=== PATIENT | female | born 1945 | race Caucasian/White ===

== ENCOUNTER → 2019-10-02 11:33 | Outpatient (BNVA) | payer MEDICARE, OTHER, SELFPAY | PROVIDERS: Family Provider Family Medicine; PCP Family Medicine; Visit Provider Urology | DX: Z87.440 Personal history of urinary (tract) infections (principal) | CPT/HCPCS: 81003 ==

== ENCOUNTER 2020-04-02 14:57 | Outpatient (CLI) | payer MEDICARE, OTHER, SELFPAY ==
--- NOTE | 2020-04-02 15:03 | MR_ITS ---
WS: [id number] MRI RIGHT HIP NONCONTRAST TECHNIQUE: Axial T1, axial T2 fat sat, coronal T1, coronal STIR, sagittal T2 fat sat, sagittal T1, an d sagittal T2 fat sat, of both hips. CLINICAL INFORMATION: RIGHT HIP JOINT PAIN COMPARISON: None. FINDINGS: Advanced degenerative arthritis both hips with joint space narrowing. Hypertrophic changes about the right femoral head and neck. Small right joint effusion. No significant edema in the right femoral he ad or acetabulum. Right proximal femoral shaft is normal. Subchondral cystic change involving the rig ht femoral head. No evidence of avascular necrosis. Similar-appearing but less severe degenerative na rrowing left hip. Normal bone marrow signal in the sacrum and visualized bony structures. Normal pubic rami. Normal vis ualized pelvic soft tissues. No inguinal lymphadenopathy. MR/MR hip RT wo con* [id number] IMPRESSION: 1. Advanced osteoarthritis right hip with joint space narrowing and subchondra l cystic change. 2. No significant edema in the right femoral head or acetabulum. Small right j oint effusion. 3. Similar-appearing but less severe degenerative changes left hip. 4. No other significant findings.
== END 2020-04-02 14:58 | disposition home or self-care (01) ==
LOC: RADSHAW 15:02
PROVIDERS: PCP Family Medicine; Visit Provider Family Medicine
DX: M25.551 Pain in right hip (principal); M16.11 Unilateral primary osteoarthritis, right hip
CPT/HCPCS: 73721

== ENCOUNTER → 2020-05-02 09:30 | Outpatient (BNVA) | payer MEDICARE, OTHER, SELFPAY | PROVIDERS: PCP Family Medicine; Visit Provider Internal Medicine | DX: Z01.812 Encounter for preprocedural laboratory examination (principal) | CPT/HCPCS: 87635 ==

== ENCOUNTER 2020-05-05 07:38 | Day surgery (SDC) | payer MEDICARE, OTHER, SELFPAY ==
--- NOTE | 2020-04-30 10:56 | ANES.PREANE2 ---
Pre-Anesthetic Assessment Pre-Anesthetic Assessment: Height/Weight: Height 1.7 m Weight 90.718 kg Preop Diagnosis: Osteoarthritis right hip Proposed Procedure: Operation Date: 05/05/20 09:10 Proposed Procedures p Total Hip Arthroplasty 43784 M16.11(Right) - Jorge Alberto Lazcano MD Familial anesthetic complications: None Social: Social History: No alcohol and No tobacco Exam: Pre-Anes Outpt Exam: alert, oriented x 3, clear to auscultation bilaterally and regular rate & rhythm Airway: Cervical ROM: WNL MP: 3 Dentition: Other (missing) CV/HEM: CV/HEM: Afib (stopping warfarin 04/30) and HTN Comments: Echo 2018 - EF 65%, mild MVR EKG unchanged from april 2019 METS - goes up and down stairs in her house up to a dozen times a day (two flights of 8 steps) Mild SOB on extertion with easy recovery : : None reported Hepatic: Hepatic: None reported GI: GI: GERD Metabolic: Metabolic: Thyroid Anesthetic Plan: ASA status: 2 Anesthesia: General Risk of > 500 ml blood loss (7ml/kg in children): Yes, adequate IV access and fluids planned PFSH Anesthesia PFSH: Medical History Afib History of recurrent UTI (urinary tract infection) HTN (hypertension) Mitral valve regurgitation Surgical History H/O section H/O total knee replacement H/O: hysterectomy Family History Mother , 82 CAD (coronary artery disease) Father , 77 CAD (coronary artery disease) Social History Smoking and tobacco status: never smoked Alcohol intake: never Marital status: Current occupational status: retired Data Anesthesia Cardiac Studies: No Data to Display
[2020-04-30 11:45] LABS: Add Urine Microscopic? NO
[2020-04-30 12:18] LABS: Bilirubin Urine Neg (NEGATIVE); Blood Urine Neg (Negative); Glucose Urine UA Norm (Normal); Ketones Urine Negative (Negative); Leukocyte Esterase Urine Negative (Negative); Nitrate Urine Negative (Negative); Protein Urine Neg (Negative); Specific Gravity, Urine 1.005 (1.005-1.030); Urine Appearance Clear (CLEAR); Urine Color Yellow (Yellow); Urobilinogen Urine Norm (Negative); pH Urine 7 (5-7)
[2020-05-05] VITALS (25 sets, daily range): BP systolic 95–144; BP diastolic 44–75; PULSE 56–73; RESP 14–22; TEMP 36.1–37.1; O2SAT 93–100
[2020-05-05] MEDS: sodium chloride 0.9% 1,000 ML 30 ML IV (08:02)
--- NOTE | 2020-05-05 08:23 | P.ANESUD_ITS ---
Pre-Anesthetic Update Pre-Anesthetic Assessment: Date of Surgery/Procedure: 05/05/20 Preop Christie gnosis: Osteoarthritis right hip Proposed Procedure: Operation Date: 05/05/20 09:10 Proposed Procedures p Total Hip Arthroplasty 81594 M16.11(Right) - Jorge Alberto Lazcano MD Any changes to Pre-Anesthetic Assessment?: No Last Intake: Intake Last Liquid Date 05/04/20 Last Liquid Time 22:00 Last Solid Date 05/04/20 Last Solid Time 20:00 Vitals: Temperature 97.7 F 05/05/20 07:52 Temperature Source Temporal Artery S can 05/05/20 07:52 Pulse Rate 73 05/05/20 07:52 Pulse Rhythm 05/05/20 07:53 Pulse Strength 3+ Normal 05/05/20 07:53 Respiratory Rate 18 05/05/20 07:52 Blood Pressure 144/71 05/05/20 07:52 Blood Pressure Danielle n 95 05/05/20 07:52 Pulse Oximetry 96 05/05/20 07:52 Oxygen Delivery Me thod 05/05/20 07:53 Other Pertinent Information: Other Pertinent Information: Plan for SAB with sedation. Cardiac Studies: No Data to Display
--- NOTE | 2020-05-05 09:24 | W.PM.OPSUD ---
Surgery/Procedure H&P Update DATE OF PROCEDURE: May 05, 2020 DATE H&P PERFORMED: 04/08/20 PREOP DIAGNOSIS: Osteoarthritis right hip PLANNED PROCEDURE: Operation Date: 05/05/20 09:10 Proposed Procedures p Total Hip Arthroplasty 95517 M16.11(Right) - Jorge Alberto Lazcano MD
[2020-05-05] MEDS: tranexamic acid 1,000 mg/10mL SDV 1000 MG IRRIGATION (10:25)
--- NOTE | 2020-05-05 10:35 | SUR.OPER ---
Family Notified Of Patient's Status Via Phone.
--- NOTE | 2020-05-05 11:50 | PM.OP ---
Operative Report Date of procedure: May 05, 2020 Pre-op Diagnosis: Osteoarthritis right hip Post-op diagnosis: same Post-op Findings: Same Procedure Done: Left total hip arthroplasty Implants: 1) Michael 46 mm ADM acetabular shell 2) Size7 Michael 132 degree neck angle SecureFit Max stem 3} 28mm standard femoral head 4} Restorationa ADM X3 insert Pathology: none sent Surgeon: Jorge Alberto Lazcano Anesthesia: Nerve Block (Spinal) Estimated blood loss (mL): 350 Complications: None Findings: Patient had degenerative changes with narrowing of the femoral head and acetabular cartilage and osteophytes about the femoral head Condition: stable Disposition: PACU Procedure: The patient was taken to the operating room and anesthesia provided by the anesthesia service. The patient was placed in the lateral position on a beanbag. A timeout was performed. The patient was draped in the usual fashion. A 15 cm long incision was made beginning just proximal to the greater trochanter and extending posteriorly to a point just distal to the trochanter on the posterior border of the trochanter. Dissection was carried down with electrocautery through the subcutaneous fat to the fascia dylan which was divided proximally and distally with curved scissors. The anterior two thirds of the gluteus medius and minimus were elevated off the hip with electrocautery. The capsule was divided in a H-like fashion. The hip was dislocated and a neck cut made just above the level of the lesser trochanter. Exposure of the acetabulum was facilitated with the acetabular retractors. Remnants of labrum and peripheral osteophytes were removed with electrocautery and a rongeur. A reamer 2 mm under the size the femoral head was utilized to ream medially to the base of the palm and are. Reaming was then increased in 1 mm intervals until a healthy rim a trabecular bone was encountered. A trial ADM cup was placed and its position marked with electrocautery In the acetabulum. A final was press-fit into place. Attention was then focused on the femur. Sequential reaming was done under power until cortical chatter was encountered. Broaching was then accomplished until a stable broach size was obtained. A trial reduction with the head and neck provided excellent stability. The wound was irrigated with saline and antibiotic solution. The final [place] SecureFit Max stem was press-fit into place. The femoral head was placed and the hip was reduced. The hip was brought through range of motion and found to be free of impingement and stable. The anterior capsule was reapproximated with 1 Ethibond. The gluteus medius and minimus were repaired through bone with 5 Ethibond and reinforced with 1 Ethibond. The fascial dylan was closed with 1 Ethibond. The subcutaneous tissue closed with 2-0 Vicryl. The skin was closed with skin hugh. A sterile dressing was applied. The patient was taken to the recovery room in an abduction pillow in stable condition.
--- NOTE | 2020-05-05 11:56 | PM.PACU ---
PACU note PACU note: VSS, no pain--spinal partially worn off. Post-Anesthesia Exam: somnolent, arousable Disposition: admitted
--- NOTE | 2020-05-05 12:03 | XR_ITS ---
WS: [id number] EXAM: RIGHT HIP: AP VIEW DATE OF EXAMINATION: 05/05/2020, 1216 hours COMPARISON: Right hip films from 03/24/2020 HISTORY: Patient is 74 years old with right hip replacement. FINDINGS: Since the earlier examination there has been interval placement of a noncemented right hip hemiarthro plasty. No hardware complication or bony malalignment is seen. Air in the soft tissues correlates wit h an open procedure. Slight arthritis in the right AC joint. XR/XR hip RT 1V wo/w pel [id number] IMPRESSION: New right hip hemiarthroplasty. No hardware complication or acute bony abnormal ity.
--- NOTE | 2020-05-05 12:10 | SUR.PHASEI ---
1210 PT HAS SENSATION/MOVEMENT TO R. FOOT, PEDAL PULSE PALPATED, CAP REFILL <3 SEC
[2020-05-05] MEDS: aspirin 81 mg EC Tablet PO (13:21)
[2020-05-05] MEDS: CELEcoxib 200 mg Capsule PO (13:21)
[2020-05-05] MEDS: sodium chloride 0.9% 1,000 ML 100 ML IV (13:21)
[2020-05-05] MEDS: oxyCODONE 5 mg IR Tab/Cap PO (13:21)
[2020-05-05] MEDS: pantoprazole DR 40 mg Tablet PO (13:21)
[2020-05-05] MEDS: chlorhexidine gluconate 0.12% Btl 473 mL 30 ML MUCOUS MEM ×3 (13:22→21:09)
--- NOTE | 2020-05-05 14:02 | PC.NURSE ---
Called Dr Lazcano to see if he wants patient to start Coumadin today. Waiting telecommunications specialist back.
[2020-05-05] MEDS: morphine 4 mg/mL SDV 1 mL 2 MG IVP ×2 (14:16→16:43)
--- NOTE | 2020-05-05 14:52 | PC.NURSE ---
Rcvd call from Dr Lazcano stating to start home dose of Coumadin today
[2020-05-05] MEDS: mupirocin oint 22 gm 1 APPLIC NASAL (16:44)
[2020-05-05] MEDS: sennosides-docusate Tablet 2 TAB PO (16:45)
--- NOTE | 2020-05-05 18:17 | PC.NURSE ---
notified Dr Lazcano that patient's pain medications are not controlling pain. Per Dr Lazcano, he will change patient's pain medications.
[2020-05-05] MEDS: oxyCODONE 5 mg IR Tab/Cap 10 MG PO (21:11)
[2020-05-06] VITALS (9 sets, daily range): BP systolic 107–130; BP diastolic 70–78; PULSE 77–101; RESP 16–20; TEMP 36.6–37.1; O2SAT 91–94
[2020-05-06] MEDS: morphine 4 mg/mL SDV 1 mL 2 MG IVP ×3 (00:25→05:11)
[2020-05-06] MEDS: oxyCODONE 5 mg IR Tab/Cap 10 MG PO ×3 (00:25→08:49)
[2020-05-06] MEDS: sodium chloride 0.9% 1,000 ML 100 ML IV ×3 (00:26→22:55)
[2020-05-06 04:30] LABS: Hemoglobin 12.2 g/dL (11.5-15.3)
[2020-05-06 04:51] LABS: INR 0.97 (0.8-1.2)
[2020-05-06] MEDS: CELEcoxib 200 mg Capsule PO ×2 (05:13→16:57)
[2020-05-06] MEDS: dilTIAZem ER (24HR) 300 mg Capsule PO (05:16)
--- NOTE | 2020-05-06 07:19 | PC.NURSE ---
Patient resting in bed, awake alert and oriented, new ice pack placed to right hip, plan of care discussed with patient verbalized understanding, patient reported goal of sitting in chair and being more mobile today , reports heart burn this morning. Call light in reach side rails up X2.
[2020-05-06] MEDS: calcium carbonate 500 mg Chew Tablet 1000 MG PO ×2 (08:08→12:36)
[2020-05-06] MEDS: ondansetron 2 mg/ML SDV 2 mL 4 MG IVP (08:19)
[2020-05-06] MEDS: HYDROcodone-acetaminophen 10-325 mg Tablet 1 TAB PO ×2 (08:53→15:09)
--- NOTE | 2020-05-06 09:39 | PC.NURSE ---
Physical therapy in room with patient completing PT, no distress noted.
[2020-05-06] MEDS: aspirin 81 mg EC Tablet PO (10:04)
[2020-05-06] MEDS: atorvastatin 40 mg Tablet 20 MG PO (10:05)
[2020-05-06] MEDS: magnesium oxide 400 mg tablet PO (10:05)
[2020-05-06] MEDS: levothyroxine 50 mcg Tablet PO (10:06)
[2020-05-06] MEDS: mupirocin oint 22 gm 1 APPLIC NASAL ×2 (10:06→16:56)
[2020-05-06] MEDS: sennosides-docusate Tablet 2 TAB PO ×2 (10:06→16:57)
[2020-05-06] MEDS: chlorhexidine gluconate 0.12% Btl 473 mL 30 ML MUCOUS MEM ×4 (10:07→20:27)
--- NOTE | 2020-05-06 10:53 | PC.NURSE ---
jasmine catheter removed prior to shift change, patient has urinated in BSC during this shift.
--- NOTE | 2020-05-06 10:54 | PC.NURSE ---
patient voided 150mL of clear urine with no fowl odor after ambulating to bedside commode from chair and back to bed when finished. patient required extensive assist of 2
--- NOTE | 2020-05-06 11:05 | PC.CHAP ---
Pastoral Care Encounter/Spiritual Assessment Type of Contact [] Declined stamp pad maker visit [] Patient/Family/Request visit [] Outpatient visit [] Follow-up visit [] Physician referral [] Code/Alert [x] Routine visit [] Staff referral [] Actively dying [] Patient sleeping [] Family support [] [] Out of room [] Palliative care [] [x] Receiving care in room [] Pre-surgical visit [] Trauma [] Long length of stay [] ICU visit [] Other: Relational/Emotional Strength [x] Patient feels connected with others/family/visitors/staff [] Distress [] Loneliness/isolation [] Abandonment Spirituality of Patient [x] Person of [place] [] Attends Orthodox of their [place] [x] Believes in Prayer [] Reads Bible or Bahai materials [] There are Spiritual issues to be addressed Mathematics Instructor Interventions [x] Prayer [x] Active listening [x] Non-anxious presence [x] Spiritual/emotional support [] Crisis/trauma care [x] Spiritual counseling [] Bereavement support [] Provided bereavement packet [] Provided Bible/devotional materials [] Provided toy/stuffed animal, coloring book to patient or family member [] Provided Communion [] Anointing/[place] [] Salvation [x] Completed spiritual assessment [] Other: Impact on Illness or Injury [] Angry [] Fearful [] Anxious [] Often cries [] Exhaustion [] Unable to work [] Unable to attend congregational [] Unable to walk/stand [] Unable to read [] Unable to drive [] Unable to eat/drink [] Unable to sleep [] Unable to be with family [] Patient intubated [] Other: Summary Had sugery on hip, feels good has a good attitude, ther will be some recovery time will go home, Time spent with patient 10 mins
--- NOTE | 2020-05-06 12:55 | ANE.PACU2 ---
Inpatient post-anesthesia follow up: Airway intact: Yes Vital signs: Temperature 98.7 F Pulse Rate 100 Respiratory Rate 16 Blood Pressure 128/78 Pulse Oximetry 94 Oxygen Delivery Me thod Room Air Oxygen Flow Rate 8 Fraction of Inspir ed Oxygen Hydration adequate: Yes Nausea and vomiting: No Pain level: 4 Mental status: Baseline
--- NOTE | 2020-05-06 13:15 | PM.PN ---
Subjective Subjective: Interval history: Pain better controlled with hydrocodone. Required IV morphine this morning but better now Vitals/I&O/Wt Last Vital Signs Temp 98.7 F 05/06/20 07:27 Pulse 100 05/06/20 07:27 Resp 16 05/06/20 07:27 BP 128/78 05/06/20 07:27 Pulse Ox 94 05/06/20 07:27 05/05/20 05/06/20 05/06/20 22:59 06:59 14:59 Intake Total 530 / 690 1050 / 1740 1120 / 1120 Output Total 200 / 650 325 / 975 450 / 450 Balance 330 / 40 725 / 765 670 / 670 Physical Exam Narrative: EXAM NARRATIVE: Right hip dressing clean and dry. Minimal swelling right thigh Urinary Catheter Management^: F: Cath Placed During This Visit: yes Urinary Catheter Date of Insertion: 05/05/20 Urinary Catheter Time of Insertion: 09:45 Data : 05/06/20 04:10 A&P Assessment and plan (1) Osteoarthritis of right hip: Status: Acute (2) Status post right hip replacement: We will continue p.o. [place] for pain control. Continue to mobilize. Anticipate discharge tomorrow Status: Acute Attestations Medical Necessity Statement*: Patient required IV pain medications this morning. Anticipate discharge tomorrow. Coding Level of Care Code Acute Marble Polisher Hand for Estevan Orellana Diagnoses Osteoarthritis of right hip M16.11 Status post right hip replacement Z96.641
[2020-05-06] MEDS: metoprolol succinate ER (24 HR) 100 mg Tablet PO (15:09)
[2020-05-06] MEDS: warfarin 5 mg Tablet PO (15:09)
--- NOTE | 2020-05-06 15:12 | PC.NURSE ---
Patient resting in bed, reports a pain level of 4/10 to right hip, NORCO given per doctors orders, see MAR for further details, ABD pillow in place, SCD's in place, call light in reach.
[2020-05-07] VITALS: BP 99/64; PULSE 66; RESP 18; TEMP 36.5; O2SAT 93
[2020-05-07 04:00] VITALS: BP 109/65; PULSE 67; RESP 17; TEMP 36.4; O2SAT 94
[2020-05-07 04:54] LABS: INR 1.11 (0.8-1.2)
[2020-05-07] MEDS: CELEcoxib 200 mg Capsule PO (05:00)
[2020-05-07] MEDS: dilTIAZem ER (24HR) 300 mg Capsule PO (05:01)
[2020-05-07 07:25] VITALS: BP 110/56; PULSE 97; RESP 18; TEMP 36.4; O2SAT 93
--- NOTE | 2020-05-07 08:11 | P.DS_ITS ---
Discharge Providers Date of Discharge: May 07, 2020 Attending Provider at Discharge: Jorge Alberto Lazcano MD Primary Care Provider: Escobar Wynn MD Diagnoses at Discharge Discharge Diagnosis (1) Osteoarthritis of right hip: Status: Resolved (2) Status post right hip replacement: Status: Acute Reason for Visit Reason for Visit: Primary osteoarthritis of rip hip Hospital Course Hospital Course: The patient was admitted after elective right total hip arthroplasty. She had initial problems with pain control requiring IV pain medications the first postoperative day. Her medications were changed from oxycodone to hydrocodone and she did much better. She was on warfarin previously and she was placed back on her home dose in addition to aspirin for DVT prophylaxis. She had sequential compression dressings placed during her hospitalization. She made good progress with therapy and by the second pos toperative day was thought stable for discharge Physical Exam Narrative: EXAM NARRATIVE: On the second postoperative day her resting was clean. She had minimal swelling in her thigh. She had no distal neurovascular deficits she was thought stable for discharge Urinary Catheter Management^: F: Cath Placed During This Visit: yes Urinary Catheter Date of Insertion: 05/05/20 Urinary Catheter Time of Insertion: 09:45 Discharge Data Data Completed and Pending: Completed Studies During Hospitalization Category Date Time Status XR hip RT 1V wo/w pel [id number] Routine Exams 05/05/20 12:03 Completed Pending at discharge Category Date Time Status Prothrombin Time INR AM LABS Lab 05/08/20 04:00 Ordered Labs from last 24 hours 05/07/20 04:00 PT 14.70 INR 1.11 Vitals: Last Vital Signs Temp 97.6 F 05/07/20 07:25 Pulse 97 05/07/20 07:25 Resp 18 05/07/20 07:25 BP 110/56 05/07/20 07:25 Pulse Ox 93 05/07/20 07:25 Discharge Plan Discharge Patient Disposition: Home Condition: Stable Prescriptions: [place] 7.5-325 mg tablet 1 tab PO Q4H Qty: 30 RF: 0 celecoxib 200 mg Capsule 200 mg PO Q12H Qty: 30 RF: 0 Continued atorvastatin 20 mg tablet 20 mg PO DAILY RF: 0 diltiazem HCl [Cartia XT] 240 mg capsule,extended release 24hr 300 mg PO QAM RF: 0 warfarin 5 mg tablet 5 mg PO DIRECTED RF: 0 levothyroxine 50 mcg capsule 50 mcg PO DAILY RF: 0 metoprolol succinate 100 mg capsule,sprinkle,ER 24hr 100 mg PO Q24H RF: 0 methenamine hippurate 1 gram tablet 1 gm PO DAILY RF: 0 magnesium 200 mg tablet 400 mg PO DAILY RF: 0 aspirin 81 mg tablet,delayed release (DR/EC) 81 mg PO ONCE RF: 0 omeprazole 20 mg tablet,delayed release (DR/EC) 20 mg PO .QOD RF: 0 ascorbic acid (vitamin C) [Vitamin C] 1,000 mg Tablet 1,000 mg PO DAILY RF: 0 warfarin 2.5 mg Tablet 2.5 mg PO DIRECTED RF: 0 Discharge Orders: Discharge Order (Routine); Ordered 05/07/20 Ordered By: Jorge Alberto Lazcano Other Ambulatory Orders: DME: Viral (Order) Location: None Selected Ordered By: Jorge Alberto Lazcano Referrals: [facility] [place] Care ([facility]) [Outside] Jorge Alberto Lazcano MD [Physician] - 05/20/20 2:45 pm Escobar Wynn MD [Primary Care Provider] - Discharge Diet: Advance as tolerated Discharge Activity: Limit activity as instructed Activity Restrictions/Additional Instructions: May shower once incisions completely free of drainage. Discontinue right hip dressing in 24-48 hours. Replaced dressings as needed. Take Celebrex twice a day for the next 15 days for pain , discontinue other anti-inflammatories take hydrocodone for breakthrough pain. Exercises per physical therapy. May discontinue abduction pillow Discharge Attestations Time Spent in Discharge Care*: other Quality Metrics Clinical Quality Measures During this hospital stay, did patient experience: None Coding Level of Care Code Acute [employer] Glazier for [facility] Fwd Diagnoses Osteoarthritis of right hip M16.11 Status post right hip replacement Z96.641
[2020-05-07] MEDS: levothyroxine 50 mcg Tablet PO (08:26)
[2020-05-07] MEDS: HYDROcodone-acetaminophen 10-325 mg Tablet 1 TAB PO (08:26)
[2020-05-07] MEDS: magnesium oxide 400 mg tablet PO (08:26)
[2020-05-07] MEDS: aspirin 81 mg EC Tablet PO (08:26)
[2020-05-07] MEDS: pantoprazole DR 40 mg Tablet PO (08:26)
[2020-05-07] MEDS: sennosides-docusate Tablet 2 TAB PO (08:26)
[2020-05-07] MEDS: atorvastatin 40 mg Tablet 20 MG PO (08:26)
[2020-05-07] MEDS: chlorhexidine gluconate 0.12% Btl 473 mL 30 ML MUCOUS MEM (08:28)
--- NOTE | 2020-05-07 09:14 | PC.NURSE ---
TICK PATIENT HAD A TICK ON THE BACK OF HER RIGHT LEG. REMOVED WITH EASE.
[2020-05-07 11:17] VITALS: BP 110/56; PULSE 97; RESP 18; TEMP 36.4; O2SAT 93
== END 2020-05-07 11:18 | disposition home or self-care (01) ==
LOC: OR 07:38 → MEDSURG 13:33
PROVIDERS: Anesthesiology; PCP Family Medicine; Visit Provider Orthopaedic Surgery
PROC: (CPT 27130; principal; 2020-05-05 09:10)
DX: M16.11 Unilateral primary osteoarthritis, right hip (principal); M25.751 Osteophyte, right hip; I10 Essential (primary) hypertension; I48.91 Unspecified atrial fibrillation; K21.9 Gastro-esophageal reflux disease without esophagitis; I34.0 Nonrheumatic mitral (valve) insufficiency
CPT/HCPCS: 27130; 12345; 36415; 51702; 73501; 81003; 85018; 85610; 96375; 97110; 97116; 97162; 97165; 97530; 97535; C1776; J0131; J0690; J2250; J2270; J2370; J2405; J2704; J3010; J3490; J7030

== ENCOUNTER → 2020-06-17 13:10 | Outpatient (BNVA) | payer MEDICARE, OTHER, SELFPAY | PROVIDERS: PCP Family Medicine; Visit Provider Orthopaedic Surgery | DX: Z96.641 Presence of right artificial hip joint (principal); Z48.89 Encounter for other specified surgical aftercare | CPT/HCPCS: 73502 ==

== ENCOUNTER 2020-08-06 15:16 | Outpatient (CLI) | payer MEDICARE, OTHER, SELFPAY ==
--- NOTE | 2020-08-06 15:45 | USCV_ITS ---
Marcella Sommer Age: 75 Gender: F : 1945 Exam Date: 08/06/2020 15:51 Ordering Phys: Sam Rob MD ([email or web address]) Technologist: Marybeth Juan Exam Location: [facility] [place] Indication: AFIB/SOB BP: 139 / 74 HR: 85 Rhythm: Sinus Technical Quality: Adequate MEASUREMENTS (Male / Female) Normal Values 2D ECHO LV Diastolic Diameter PLAX 4.4 cm 4.2 - 5.9 / 3.9 - 5.3 cm LV Systolic Diameter PLAX 3.2 cm LV Chamber Size 2.6 cm IVS Diastolic Thickness 1.2 cm 0.6 - 1.0 / 0.6 - 0.9 cm IVS Systolic Thickness 1.5 cm LVPW Diastolic Thickness 1.6 cm 0.6 - 1.0 / 0.6 - 0.9 cm LVPW Systolic Thickness 1.7 cm RV Chamber Size 3.3 cm LVOT Diameter 2.0 cm LV Ejection Fraction 2D Teich 53.9 % LV Ejection Fraction MOD 2C 41.0 % LV Ejection Fraction 2C AL 41.1 % LA Diameter 3.8 cm LA Width 3.8 cm LA Height 5.4 cm RA Width 3.1 cm RA Height 3.9 cm Aorta at Sinotubular Diameter 2.5 cm M-MODE LV Diastolic Diameter MM 4.5 cm 4.2 - 5.9 / 3.9 - 5.3 cm LV Systolic Diameter MM 3.1 cm LV Ejection Fraction MM Teich 61.1 % IVS Diastolic Thickness MM 0.7 cm 0.6 - 1.0 / 0.6 - 0.9 cm IVS Systolic Thickness MM 0.9 cm LVPW Diastolic Thickness MM 0.9 cm 0.6 - 1.0 / 0.6 - 0.9 cm LVPW Systolic Thickness MM 1.5 cm Aortic Annulus Diameter 2.9 cm LA Ao Ratio MM 1.4 MV E Point Septal Separation 1.4 cm DOPPLER AV Peak Velocity 146.0 cm/s LVOT Peak Velocity 107.0 cm/s AV Area Cont Eq vti 2.6 cm squared AV Area Cont Eq pk 2.4 cm squared MV Area PHT 3.5 cm squared Mitral E to A Ratio 2.9 MV E' Velocity 61.5 cm/s Mitral E to MV E' Ratio 10.0 Mitral E to LV E' Lateral Ratio 9.4 Mitral E to LV E' Septal Ratio 10.6 TR Peak Velocity 232.7 cm/s TR Peak Gradient 21.7 mmHg TV Peak E Velocity 79.0 cm/s Right Atrial Pressure 3.0 mmHg Pulmonary Artery Systolic Pressu 24.7 mmHg PV Peak Velocity 96.0 cm/s RV Acceleration Time 0.2 s RV Ejection Time 0.4 s RV AcT/ET 0.5 FINDINGS Left Ventricle Normal left ventricular cavity size. Normal left ventricular systolic function. No regional wall motion abnormalities. Left ventricular ejection fraction is estimated at 61 %. Grade I/IV diastolic dysfunction (abnormal relaxation filling pattern), normal to mildly elevated filling pressures. Right Ventricle The right ventricle is normal in size and function. Right Atrium The right atrium is normal in size. Left Atrium The left atrium is normal in size. Mitral Valve Moderately thickened mitral valve. Mild mitral annular calcification. No mitral valve stenosis. Trace mitral valve regurgitation. Aortic Valve Mild aortic valve calcification. No aortic valve stenosis. No aortic valve regurgitation. Tricuspid Valve Mild tricuspid valve regurgitation. Pulmonic Valve Structurally normal pulmonic valve without significant stenosis. There is no pulmonic regurgitation. Pericardium Normal pericardium without effusion. Aorta Normal ascending aorta dimension. CONCLUSIONS 1-Normal left ventricular cavity size. Normal left ventricular systolic function. No regional wall motion abnormalities. Left ventricular ejection fraction is estimated at 61 %. Grade I/IV diastolic dysfunction (abnormal relaxation filling pattern), normal to mildly elevated filling pressures. 2-Moderately thickened mitral valve. Mild mitral annular calcification. No mitral valve stenosis. Trace mitral valve regurgitation. 3-Mild tricuspid valve regurgitation. 4-There is no pericardial effusion. 5-Pulmonary artery systolic pressure is within normal limits. 6--Right atrial pressure is around 5 mm of mercury. 7-No significant change since the prior echocardiogram study of 02/03/2018. Sam Rob MD (Electronically Signed) Final Date: 06 August 2020 18:34 S
== END 2020-08-06 15:17 | disposition home or self-care (01) ==
LOC: RAD 15:28
PROVIDERS: PCP Family Medicine; Visit Provider Internal Medicine Cardiovascular Disease
DX: I48.91 Unspecified atrial fibrillation (principal); R06.02 Shortness of breath; I08.1 Rheumatic disorders of both mitral and tricuspid valves
CPT/HCPCS: 93306

== ENCOUNTER → 2020-12-03 10:24 | Outpatient (BNVA) | payer MEDICARE, OTHER, SELFPAY | PROVIDERS: PCP Family Medicine; Visit Provider Nurse Practitioner Family | DX: Z87.440 Personal history of urinary (tract) infections (principal) | CPT/HCPCS: 81003 ==

== ENCOUNTER → 2022-02-23 09:42 | Outpatient (BNVA) | payer MEDICARE, OTHER, SELFPAY | PROVIDERS: PCP Family Medicine; Visit Provider Urology | DX: Z87.440 Personal history of urinary (tract) infections (principal); N30.80 Other cystitis without hematuria | CPT/HCPCS: 81003; 99213 ==

== ENCOUNTER → 2022-08-31 10:48 | Outpatient (BNVA) | payer MEDICARE, OTHER, SELFPAY | PROVIDERS: PCP Family Medicine; Visit Provider Internal Medicine Cardiovascular Disease | DX: I48.11 Longstanding persistent atrial fibrillation (principal); I10 Essential (primary) hypertension; I34.0 Nonrheumatic mitral (valve) insufficiency; Z79.01 Long term (current) use of anticoagulants; Z79.82 Long term (current) use of aspirin | CPT/HCPCS: 93005; 99213 ==

== ENCOUNTER → 2023-02-22 10:47 | Outpatient (BNVA) | payer MEDICARE, OTHER, SELFPAY | PROVIDERS: PCP Family Medicine; Visit Provider Urology | DX: Z87.440 Personal history of urinary (tract) infections (principal) | CPT/HCPCS: 81003; 99213 ==

== ENCOUNTER → 2023-08-30 10:53 | Outpatient (BNVA) | payer MEDICARE, OTHER, SELFPAY | PROVIDERS: PCP Family Medicine; Visit Provider Internal Medicine Cardiovascular Disease | DX: I48.11 Longstanding persistent atrial fibrillation (principal); I10 Essential (primary) hypertension; I34.0 Nonrheumatic mitral (valve) insufficiency; Z79.01 Long term (current) use of anticoagulants | CPT/HCPCS: 99214 ==

== ENCOUNTER → 2024-04-16 07:51 | Outpatient (BNVA) | payer MEDICARE, OTHER, SELFPAY | PROVIDERS: PCP Family Medicine; Visit Provider Nurse Practitioner Family | DX: D48.5 Neoplasm of uncertain behavior of skin (principal); L82.1 Other seborrheic keratosis; D22.61 Melanocytic nevi of right upper limb, including shoulder; L72.0 Epidermal cyst; L81.4 Other melanin hyperpigmentation; Z85.828 Personal history of other malignant neoplasm of skin | CPT/HCPCS: 11102; 99203 ==

== ENCOUNTER 2024-08-16 09:06 | Emergency (ER) | payer MEDICARE, OTHER, SELFPAY ==
[2024-08-16 09:17] VITALS: BP 132/78; PULSE 90; TEMP 36.7; O2SAT 94; BMI 31.3
--- NOTE | 2024-08-16 09:23 | XRR_ITS ---
PROCEDURE INFORMATION: Exam: XR Chest Exam date and time: 08/16/2024 9:40 AM Age: 79 years old Clinical indication: Dyspnea; Additional info: Dyspnea/cough TECHNIQUE: Imaging protocol: Radiologic exam of the chest. Views: 1 view. COMPARISON: CR XR chest 2V* [id number] 08/04/2019 2:00 PM FINDINGS: Lungs: Unremarkable. No consolidation. Pleural spaces: Unremarkable. No pleural effusion. No pneumothorax. Heart/Mediastinum: Unremarkable. No cardiomegaly. Bones/joints: Unremarkable. XR/XR chest 1V portable [id number] IMPRESSION: No acute findings.
--- NOTE | 2024-08-16 09:26 | ECG_ITS ---
[facility] Date: 2024-08-16 Pat Name: Marcella Sommer Department: Room: Gender: Female Cook [employer]: : 1945 Requested By: Mp Mitchell Order Number: [id number] Michel MD: Wendy Ward M.D. Measurements Intervals [place] Rate: 67 P: 0 [place]: 0 QRS: 51 QRSD: 89 T: -88 QT: 370 QTc: 393 Interpretive Statements ATRIAL FIBRILLATION POSSIBLE ANTERIOR MYOCARDIAL INFARCTION , OF INDETERMINATE AGE [30 ms Q WAVE IN Diffuse nonspecific T wave changes V3/V4, OR R < 0.2 mV IN V4] Compared to ECG 08/04/2019 14:22:16 Myocardial infarct finding now present Electronically Signed On 08-16-2024 13:50:13 PROCESS SAFETY SPECIALIST by Wendy Ward M.D. [email or web address]
[2024-08-16 09:28] LABS: Basophils # 0.1 10^3/uL (0.0-0.1); Basophils % 0.3 %; Eosinophils % 0.2 %; Hematocrit 51.4 % (36-47); Lymphocytes # 1.8 10^3/uL (0.8-4.8); Lymphocytes % 12.6 %; Mean Corpuscular HGB Conc 34.4 g/dL (30-55); Mean Corpuscular Hemoglobin 30.8 pg (27-33); Mean Corpuscular Volume 89.5 fl (85-98); Mean Platelet Volume 9.8 fL (7.4-10.4); Monocytes # 0.8 10^3/uL (0.2-0.9); Monocytes % 5.8 %; Neutrophils # 11.55 10^3/uL (1.8-7.7); Neutrophils % 80.8 %; Nucleated Red Blood Cells % 0 %; Platelet Count 318 10^3/cmm (157-399); Red Blood Count 5.74 10^6/uL (3.85-5.65); Red Cell Distribution Width 12.7 % (12.1-15.1)
--- NOTE | 2024-08-16 09:47 | ED_ITS ---
HPI - Nausea/Vomiting/Diarrhea 2 General: Chief complaint: Nausea/Vomiting/Diarrhea Stated complaint: Abd pain,n,v Time Seen by Provider: 08/16/24 09:16 History of Present Illness: 79-year-old female presents emergency ro om complaint nausea and vomiting for the last 3 days. She denies fever sweats or chills no hematemesis or coffee-ground emesis. She denies any fever sweats or chills no focal abdominal pain. She has previously had a cholecystectomy 3 sections. She has had a colonoscopy that showed diverticuli but is never had any episodes of diverticulitis in the past. Associated nausea: Yes Associated symtoms: Reports nausea; Denies chest pain or dysuria Related Data Home Medications Medication Instructions Recorded Confirmed magnesium 200 mg tablet 400 mg PO DAILY 09/28/19 08/16/24 ascorbic acid (vitamin C) 500 mg 1,000 mg PO DAILY 08/16/24 08/16/24 tablet (Vitamin C) levothyroxine 50 mcg tablet 50 mcg PO DAILY 08/16/24 08/16/24 Previous Rx's Medication Instructions Recorded methenamine hippurate 1 gram tablet See Rx Instructions .Route 12/22/22 .COMPLEX #180 tabs apixaban 5 mg tablet (Eliquis) 5 mg PO BID #60 tabs 08/30/23 atorvastatin 20 mg tablet 20 mg PO DAILY #90 tabs 09/05/23 diltiazem HCl 300 mg 300 mg PO QAM #90 caps 11/29/23 capsule,extended release 24 hr metoprolol succinate 100 mg 100 mg PO DAILY #90 tabs 11/29/23 tablet,extended release 24 hr Allergies Allergy/AdvReac Type Severity Reaction Status Date / Time nitrofurantoin Allergy NA Verified 08/16/24 09:21 [From Macrobid] sulfamethoxazole Allergy NA Verified 08/16/24 09:21 [From Bactrim] trimethoprim [From Bactrim] Allergy NA Verified 08/16/24 09:21 Review of Systems 2 Const: Denies: fever(s) or chills Card: Denies: chest pain Resp: Denies: dyspnea GI: Reports: abdominal pain, nausea and vomiting : Denies: dysuria, urinary frequency or urinary urgency Musc: Denies: neck pain or back pain Skin/Breast: Denies: rash PFSH ED 2 PFSH: Medical History History of recurrent UTI (urinary tract infection) Mitral valve regurgitation HTN (hypertension) Afib Surgical History History of cholecystectomy H/O total knee replacement H/O: hysterectomy H/O section Family History Mother , 82 CAD (coronary artery disease) Father , 77 CAD (coronary artery disease) Social History Smoking and tobacco/nicotine status: never used tobacco/nicotine Alcohol intake: never Substance/Drug Use: never Household members: spouse Marital status: Current occupational status: retired Physical Exam 2 Const: COMMON NORMALS: no acute distress GENERAL APPEARANCE: cooperative and comfortable ORIENTATION/CONSCIOUSNESS: Yes awake, Yes oriented to person, Yes oriented to place and Yes oriented to time HENMT: COMMON NORMALS: normocephalic, atraumatic and hearing grossly normal bilaterally HEAD & SCALP: normocephalic and atraumatic Resp: COMMON NORMALS: normal respiratory effort, No retractions, No use of accessory muscles and clear to auscultation bilaterally AUSCULTATION: clear to auscultation bilaterally Cardio: COMMON NORMALS: regular rate, regular rhythm and No murmurs present (Cardio) RATE: regular rate RHYTHM: regular rhythm GI: COMMON NORMALS: Soft to palpation and No hepatosplenomegaly present A USCULTATION: Yes normoactive bowel sounds PALPATION: Yes Soft to palpation, No Tenderness to palpation present (GI), No Guarding due to palpation present (GI) and Yes No hepatosplenomegaly present Extremity: COMMON NORMALS: normal to inspection, capillary refill normal, no clubbing, cyanosis or edema, no calf tenderness and no pedal edema Neuro: SENSORIUM/ORIENTATION: Yes oriented to person, Yes oriented to place and Yes oriented to time Skin: COMMON NORMALS: no rashes or lesions noted GENERAL SKIN EXAM: no rashes or lesions noted Course 2 Vital Signs: Vital signs: Vital Signs Temperature 98.1 F 08/16/24 09:17 Pulse Rate 91 08/16/24 17:56 Blood Pressure 136/101 08/16/24 17:56 Pulse Oximetry 99 08/16/24 17:56 Oxygen Delivery Me thod Room Air 08/16/24 11:04 MDM - Nausea/Vomiting/Diarrhea Medical Decision Making CT shows bowel obstruction the white count of 14,000. Likely from adhesions this has been going on for 3 days. Ordered NG to be placed discussed with the patient admission which she agreed to discussed with hospitalist consulted surgery and orders were written. When Dr. Gallegos came and seen the patient other family members arrive now they are demanding to be transferred. Patient be transferred due to patient request. The initially asked for [facility] declined they do not have any beds available. Dr. Chen at [facility] in [place] agreed to accept patient on transfer at this time we are waiting on bed assignment. NG has been placed placement confirmed. Patient is premedicated with Cetacaine and Ativan. IV fluids initially liter and now at D5 normal saline with 20 of KCl at maintenance rate. Medical Records I reviewed the patient's medical records. Lab Data I reviewed the patient's lab results. 08/16/24 09:20 08/16/24 09:20 Radiology Impressions Abdomen/Pelvis CT 08/16/24 09:52 IMPRESSION: 1. Findings most compatible with a small bowel obstruction. There appears to be a transition point within the right lower quadrant likely related to adhesions. 2. Diverticulosis. 3. Small amount of ascites. 4. Please see above comments for additional details. ADDENDUM: 08/16/24 1124 COMMENT: THIS REPORT CONTAINS FINDINGS THAT MAY BE CRITICAL TO PATIENT CARE. The exam findings were verbally communicated by me to MP MCCARTHY via telephone conference at 11:21 AM WATER SYSTEMS ENGINEER on 08/16/2024. The findings were acknowledged and understood. Chest X-Ray 08/16/24 13:44 IMPRESSION: Good enteric feeding tube positioning Laboratory Results WBC 14.30 10^3/uL (3.29-11.43) H 08/16/24 09:20 RBC 5.74 10^6/uL (3.85-5.65) H 08/16/24 09:20 Hgb 17.70 g/dL (11.27-16.99) H 08/16/24 09:20 Hct 51.4 % (36-47) H 08/16/24 09:20 MCV 89.5 fl (85-98) 11/28/24 09:20 MCH 30.8 pg (27-33) 08/16/24 09:20 MCHC 34.4 g/dL (30-55) 08/16/24 09:20 RDW 12.7 % (12.1-15.1) 08/16/24 09:20 Plt Count 318 10^3/cmm (157-399) 08/16/24 09:20 MPV 9.8 fL (7.4-10.4) 08/16/24 09:20 Neut % (Auto) 80.8 % 08/16/24 09:20 Lymph % (Auto) 12.6 % 08/16/24 09:20 [place] % (Auto) 5.8 % 08/16/24 09:20 Eos % (Auto) 0.2 % 08/16/24 09:20 Baso % (Auto) 0.3 % 08/16/24 09:20 Neut # (Auto) 11.55 10^3/uL (1.8-7.7) H 08/16/24 09:20 Lymph # (Auto) 1.8 10^3/uL (0.8-4.8) 08/16/24 09:20 [place] # (Auto) 0.8 10^3/uL (0.2-0.9) 08/16/24 09:20 Eos # (Auto) 0.0 10^3/uL (0.0-0.8) 08/16/24 09:20 Baso # (Auto) 0.1 10^3/uL (0.0-0.1) 08/16/24 09:20 Nucleated RBC % (auto) 0 % 08/16/24 09:20 Nucleated RBCs # 0.0 /100WBC 08/16/24 09:20 Sodium 138 mmol/L (136-145) 08/16/24 09:20 Potassium 4.3 mmol/L (3.5-5.1) 08/16/24 09:20 Chloride 99 mmol/L (98-107) 08/16/24 09:20 Carbon Dioxide 24 mmol/L (22-29) 08/16/24 09:20 Anion Gap 19.3 (5-19) H 08/16/24 09:20 BUN 20 mg/dL (8-23) 08/16/24 09:20 Creatinine 0.9 mg/dL (0.5-0.9) 08/16/24 09:20 GFR Calculation Not Reportable 08/16/24 09:20 Glucose 146 mg/dL (65-115) H 08/16/24 09:20 Calculated Osmolality 291 mOsm/kg (285-295) 08/16/24 09:20 Lactic Acid 2.1 mmol/L (0.5-2.2) 08/16/24 09:20 Lactic Acid (Sepsis) 1.2 mmol/L (0.5-2.2) 08/16/24 14:02 Calcium 9.8 mg/dL (8.5-10.5) 08/16/24 09:20 Magnesium 2.3 mg/dL (1.7-2.3) 08/16/24 09:20 Total Bilirubin 1.2 mg/dL (0.15-1.2) 08/16/24 09:20 AST 16 U/L (0-32) 08/16/24 09:20 ALT 12 U/L (0-33) 08/16/24 09:20 Alkaline Phosphatase 208 U/L (35-105) H 08/16/24 09:20 Total Protein 7.6 g/dL (6.6-8.7) 08/16/24 09:20 Albumin 4.4 g/dL (3.5-5.2) 08/16/24 09:20 Globulin 3.2 g/dL (1.3-4.6) 08/16/24 09:20 Lipase 22 U/L (13-60) 08/16/24 09:20 Urine Color Yellow (Yellow) 08/16/24 11:03 Urine Appearance Clear (CLEAR) 08/16/24 11:03 Urine pH 6.0 (5-7) 08/16/24 11:03 Ur Specific [place] 1.092 (1.005-1.030) H 08/16/24 11:03 Urine Protein 1+ (Negative) A 08/16/24 11:03 Urine Glucose (UA) Negative (Normal) 08/16/24 11:03 Urine Ketones Trace (Negative) 08/16/24 11:03 Urine Blood Negative (Negative) 08/16/24 11:03 Urine Nitrate Negative (Negative) 08/16/24 11:03 Urine Bilirubin Negative (Negative) 08/16/24 11:03 Urine Urobilinogen 1.0 mg/dL (Negative) 08/16/24 11:03 Ur Leukocyte Esterase Negative (Negative) 08/16/24 11:03 Urine RBC 3-5 /hpf (0-2) 08/16/24 11:03 Urine WBC 6-10 /hpf (0-5) 08/16/24 11:03 Ur Squamous Epith Cells 0-5 /hpf (0-5) 08/16/24 11:03 Amorphous Sediment Not Reportable 08/16/24 11:03 Urine Bacteria None seen /hpf (NONE) 08/16/24 11:03 Hyaline Casts 2.87 /lpf 08/16/24 11:03 All radiology interpretation(s) finalized by discharge Discharge Plan Discharge Patient Disposition: Xfer Short-Term Hosp Clinical Impression: Small bowel obstruction due to adhesions Afib Qualifiers: Atrial fibrillation type: longstanding persistent Qualified Code(s): I48.11 - Longstanding persistent atrial fibrillation Condition: Stable Referrals: Escobar Wynn MD [Primary Care Provider] - Coding Level of Care Code ED Face Cleaner for Romyg Esteban
--- NOTE | 2024-08-16 09:52 | CTR_ITS ---
PROCEDURE INFORMATION: Exam: CT Abdomen And Pelvis With Contrast Exam date and time: 08/16/2024 10:36 AM Age: 79 years old Clinical indication: Abdominal pain; Generalized; Prior surgery; Surgery date: 6+ months; Surgery type: RT hip, gb, 3 csection, hysterectomy; Additional info: Abd pain TECHNIQUE: Imaging protocol: Computed tomography of the abdomen and pelvis with contrast. Radiation optimization: All CT scans at this facility use at least one of these dose optimization techniques: automated exposure control; mA and/or kV adjustment per patient size (includes targeted exams where dose is matched to clinical indication); or iterative reconstruction. Contrast material: OMNIPAQUE 350; Contrast volume: 100 ml; Contrast route: INTRAVENOUS (IV); COMPARISON: CR XR hip RT 2-3V wo/w pel* [id number] 06/17/2020 1:15 PM RADIATION DOSE METRICS: Total DLP (mGy-cm): 762.85 FINDINGS: Lungs: Lung bases are clear as visualized. Diaphragm: There is a small hiatal hernia. Liver: No acute findings are noted with regards to the liver. Gallbladder and biliary ducts: There are surgical clips within the gallbladder fossa. The common bile duct is dilated measuring up to 14 mm in size. This may be post cholecystectomy in nature. However, if there is a clinical concern for biliary obstruction, further evaluation with ERCP or MRCP would be recommended. Pancreas: Normal. No ductal dilation. Spleen: Normal. No splenomegaly. Adrenal glands: Normal. No mass. Kidneys and ureters: Normal. No hydronephrosis. Stomach and bowel: There are scattered colonic diverticula. No large bowel wall thickening is appreciated. There are dilated loops of small bowel with air-fluid levels. The terminal ileum is decompressed. There appears to be a transition point within the right lower quadrant. Findings are compatible with a small bowel obstruction. Appendix: The appendix is not identified. Intraperitoneal space: There is a small amount of ascites within the abdomen and pelvis. No free air is identified. Vasculature: The aorta is normal in caliber. There is calcified plaque involving the aorta and its branch vessels. Lymph nodes: Unremarkable. No enlarged lymph nodes. Urinary bladder: Unremarkable as visualized. Reproductive: The uterus is not identified. Bones/joints: There are postoperative changes status post right hip replacement. No blastic or lytic bony lesions are identified. Soft tissues: There is a small fat filled periumbilical hernia. CT/CT abdomen pelvis w con* [id number] IMPRESSION: 1. Findings most compatible with a small bowel obstruction. There appears to be a transition point within the right lower quadrant likely related to adhesions. 2. Diverticulosis. 3. Small amount of ascites. 4. Please see above comments for additional details.
--- NOTE | 2024-08-16 09:54 | PC.PHAR ---
Pt states took about half of her medications yesterday but threw them up afterward. Methenanmine hippurate 1 gm last filled 09/27/23 90ds-pt still takes. Pt presented a med list that she wrote down prior to arriving.
[2024-08-16 09:55] LABS: Alanine Aminotransferase 12 U/L (0-33); Albumin Level 4.4 g/dL (3.5-5.2); Alkaline Phosphatase 208 U/L (35-105); Anion Gap 19.3 (5-19); Aspartate Amino Transferase 16 U/L (0-32); Blood Urea Nitrogen 20 mg/dL (8-23); Calcium 9.8 mg/dL (8.5-10.5); Carbon Dioxide 24 mmol/L (22-29); Chloride 99 mmol/L (98-107); Creatinine Clr Calc Pharmacy 60.5307; Globulin 3.2 g/dL (1.3-4.6); Glucose 146 mg/dL (65-115); Lipase 22 U/L (13-60); Magnesium 2.3 mg/dL (1.7-2.3); Osmolality Calculated 291 mOsm/kg (285-295); Potassium 4.3 mmol/L (3.5-5.1); Sodium 138 mmol/L (136-145); Total Bilirubin 1.2 mg/dL (0.15-1.2); Total Protein 7.6 g/dL (6.6-8.7)
[2024-08-16] MEDS: ondansetron 2 mg/ML SDV 2 mL 4 MG IVP (09:59)
[2024-08-16] MEDS: iohexol 350 mg/mL 500 mL Btl (per mL) IV (10:40)
[2024-08-16 11:04] VITALS: BP 144/75; PULSE 85; O2SAT 95
[2024-08-16 11:12] LABS: Bilirubin Urine Negative (Negative); Blood Urine Negative (Negative); Glucose Urine UA Negative (Normal); Ketones Urine Trace (Negative); Leukocyte Esterase Urine Negative (Negative); Nitrate Urine Negative (Negative); Protein Urine 1+ (Negative); Urine Appearance Clear (CLEAR); Urine Color Yellow (Yellow)
[2024-08-16 11:17] LABS: Add Urine Microscopic? YES; Bacteria Urine None Seen /hpf; Hyaline Casts Urine 2.87 /lpf; Squamous Epithelial Cell Urine 0-5 /hpf (0-5)
[2024-08-16 11:22] LABS: Specific Gravity, Urine 1.092 (1.005-1.030)
[2024-08-16 11:23] LABS: Add Urine Culture? No
[2024-08-16] MEDS: morphine 4 mg/mL SDV 1 mL 2 MG IVP (11:27)
[2024-08-16 11:58] LABS: Lactic Sepsis W/Reflex 2.1 mmol/L (0.5-2.2)
[2024-08-16 12:09] VITALS: BP 139/99; PULSE 91; O2SAT 96
[2024-08-16] MEDS: sodium chloride 0.9% 1,000 ML 999 ML IV (12:12)
--- NOTE | 2024-08-16 12:17 | P.CONIM_ITS ---
Providers/Reason For Consult 2 Consulting Physician/Specialty*: General Surgery Reason for Consult*: Small bowel obstruction Primary Care Provider: Escobar Wynn MD History of Present Illness History of Present Illness Marcella Sommer is a 79 year old female with a history of multiple intra-abdominal surgeries including 3 C-sections, hysterectomy and a cholecystectomy, presents with 24 to 48 hours of abdominal pain nausea and vomit. Last bowel movement was this morning, has not been passing gas since yesterday. CAT scan done in the ED showed evidence of a small bowel obstruction with a possible transition point in the right lower quadrant consistent with the possibility of adhesions. There is minimal amount of ascites but otherwise no changes suggesting bowel compromise. Review of Systems 2 General: Reports: 10 or more systems reviewed and unremarkable except in HPI and below Medications/Allergies Home Medications Medication Instructions Recorded Confirmed Last Taken Type magnesium 200 mg tablet 400 mg PO DAILY 09/28/19 08/16/24 08/15/24 History methenamine hippurate 1 gram tablet See Rx Instructions .Route 12/22/22 08/16/24 08/15/24 Rx .COMPLEX #180 tabs apixaban 5 mg tablet (Eliquis) 5 mg PO BID #60 tabs 08/30/23 08/16/24 08/15/24 Rx atorvastatin 20 mg tablet 20 mg PO DAILY #90 tabs 09/05/23 08/16/24 08/15/24 Rx diltiazem HCl 300 mg 300 mg PO QAM #90 caps 11/29/23 08/16/24 08/15/24 Rx capsule,extended release 24 hr metoprolol succinate 100 mg 100 mg PO DAILY #90 tabs 11/29/23 08/16/24 08/15/24 Rx tablet,extended release 24 hr ascorbic acid (vitamin C) 500 mg 1,000 mg PO DAILY 08/16/24 08/16/24 08/15/24 History tablet (Vitamin C) levothyroxine 50 mcg tablet 50 mcg PO DAILY 08/16/24 08/16/24 08/15/24 History Allergies Allergy/AdvReac Type Severity Reaction Status Date / Time nitrofurantoin Allergy NA Verified 08/16/24 09:21 [From Macrobid] sulfamethoxazole Allergy NA Verified 08/16/24 09:21 [From Bactrim] trimethoprim [From Bactrim] Allergy NA Verified 08/16/24 09:21 Current Medications Generic Name Dose Route Start Last Admin Trade Name Masha PRN Reason Stop Dose Admin Sodium Chloride 1,000 mls @ 999 mls/hr 08/16/24 11:33 08/16/24 12:12 Sodium Chloride 0.9% IV 08/16/24 12:33 999 mls/hr .Q1H1M ONE Administration PFSH Acute 2 PFSH: Medical History History of recurrent UTI (urinary tract infection) Mitral valve regurgitation HTN (hypertension) Afib Surgical History History of cholecystectomy H/O total knee replacement H/O: hysterectomy H/O section Family History Mother , 82 CAD (coronary artery disease) Father , 77 CAD (coronary artery disease) Social History Smoking and tobacco/nicotine status: never used tobacco/nicotine Alcohol intake: never Substance/Drug Use: never Household members: spouse Marital status: Current occupational status: retired Vitals/I&O/Wt Last Vital Signs Temp 98.1 F 08/16/24 09:17 Pulse 91 08/16/24 12:09 BP 139/99 08/16/24 12:09 Pulse Ox 96 08/16/24 12:09 O2 Del Method Room Air 08/16/24 11:04 Weight last 48 hrs Weight 200 lb Physical Exam 2 Narrative: General : Patient is well developed , no acute distress, oriented x3 Head : Normal cephalic, a-traumatic. Nose : Mucous membranes are without erythema. Lungs : Equal chest rise bilaterally, no use of accessory muscles, trachea is midline. CV : Rate and rhythm are normal. Abdomen : Abdomen is soft, minimally tender to palpation especially in the left hemiabdomen, no peritonitis or rebound tenderness Extremities : No edema. Upper extremities are normal bilaterally. Back : non-tender to palpation, no CVA tenderness. Data 08/16/24 09:20 08/16/24 09:20 A&P Assessment and plan (1) Small bowel obstruction due to adhesions: Plan 79-year-old female presenting with a small bowel obstruction in the setting of intra-abdominal adhesions due to multiple intra-abdominal surgeries. Patient currently stable vital signs are normal has slight elevation in the white count likely due to hemoconcentration is also here her hemoglobin is significantly elevated. Lactate level is normal. Abdominal exam is benign. At this time I think her small bowel obstruction is likely due to adhesions and conservative management is indicated, I recommend NG tube decompression and after 24 to 48 hours of NG tube decompression I will plan to do a Gastrografin trial to evaluate for resolution of the obstruction, in case of changes in the clinical status patient may require laparoscopy possible laparotomy. I have discussed with the patient and family members the findings and treatment plan, at that point they inform me that they do not want to stay in our institution, they will prefer to be transferred to an outside facility. I have informed the patient and family member that we are able to take care of her condition in our institution but they state that they will prefer to continue with transfer or otherwise signed out of the hospital to go to a different facility, I have discussed this with emergency medicine provider, he will discuss with the patient and family member will attempt transfer versus possible departure AGAINST MEDICAL ADVICE. I will remain available to follow-up patient progression in the case that the patient decides to stay in our institution. Coding Level of Care Code 75309 Diagnoses Small bowel obstruction due to adhesions K56.50
--- NOTE | 2024-08-16 12:44 | PC.NURSE ---
PT REQUESTING TO BE TRANSFERRED TO [facility]. DR. MAKI NOTIFIED.
[2024-08-16 13:25] LABS: Reflex Lactate Order REFLEX LACTIC ORDERD
[2024-08-16] MEDS: LORazepam 2 mg/mL INJ 1 mL IVP (13:29)
[2024-08-16] MEDS: cetacaine Spray 5 gm Can 2 SPRAY TOPICAL (13:32)
--- NOTE | 2024-08-16 13:44 | XRR_ITS ---
PROCEDURE INFORMATION: Exam: XR Chest Exam date and time: 08/16/2024 1:44 PM Age: 79 years old Clinical indication: Device placement; Ng tube; Additional info: Ng placement TECHNIQUE: Imaging protocol: Radiologic exam of the chest. Views: 1 view. COMPARISON: CR (CHEST, ) 08/16/2024 9:40 AM FINDINGS: Tubes, catheters and devices: The feeding tube is in good position within the stomach. Lungs: There is patchy atelectasis and/or infiltrate involving both lung bases. Pleural spaces: Unremarkable. No pleural effusion. No pneumothorax. Heart/Mediastinum: Unremarkable. No cardiomegaly. Bones/joints: Unremarkable. XR/XR chest 1V portable [id number] IMPRESSION: Good enteric feeding tube positioning
[2024-08-16 14:20] LABS: Lactic Acid level (Lactate) 1.2 mmol/L (0.5-2.2)
[2024-08-16] MEDS: pantoprazole 40 mg SDV 80 MG IVP (14:34)
[2024-08-16 17:54] VITALS: BP 135/107; PULSE 87; O2SAT 96
[2024-08-16 17:56] VITALS: BP 136/101; PULSE 91; O2SAT 99
== END 2024-08-16 15:45 | disposition short-term general hospital (02) ==
PROVIDERS: Emergency Provider Family Medicine; PCP Family Medicine
DX: K56.50 Intestinal adhesions [bands], unspecified as to partial versus complete obstruction (principal); I48.11 Longstanding persistent atrial fibrillation; I10 Essential (primary) hypertension
CPT/HCPCS: 36415; 71045; 74177; 80053; 81001; 83605; 83690; 83735; 85025; 93005; 96374; 96375; 99285; J2060; J2270; J2405; J2470; J7030

== ENCOUNTER → 2024-10-15 12:40 | Outpatient (BNVA) | payer MEDICARE, OTHER, SELFPAY | PROVIDERS: PCP Family Medicine; Visit Provider Nurse Practitioner Family | DX: D22.61 Melanocytic nevi of right upper limb, including shoulder (principal); L72.0 Epidermal cyst; L81.4 Other melanin hyperpigmentation; Z08 Encounter for follow-up examination after completed treatment for malignant neoplasm; Z85.828 Personal history of other malignant neoplasm of skin; D48.5 Neoplasm of uncertain behavior of skin; L57.0 Actinic keratosis | CPT/HCPCS: 11102; 17000; 99213 ==

== ENCOUNTER → 2024-12-06 11:00 | Outpatient (BNVA) | payer MEDICARE, OTHER, SELFPAY | PROVIDERS: PCP Family Medicine; Visit Provider Internal Medicine Cardiovascular Disease | DX: I48.11 Longstanding persistent atrial fibrillation (principal); I10 Essential (primary) hypertension; I34.0 Nonrheumatic mitral (valve) insufficiency; E78.5 Hyperlipidemia, unspecified | CPT/HCPCS: 99214 ==

== ENCOUNTER → 2024-12-10 11:50 | Outpatient (BNVA) | payer MEDICARE, OTHER, SELFPAY | PROVIDERS: PCP Family Medicine; Visit Provider Clinical Nurse Specialist Adult Health | DX: J20.8 Acute bronchitis due to other specified organisms (principal) | CPT/HCPCS: 87426 ==

== ENCOUNTER → 2025-04-15 11:03 | Outpatient (BNVA) | payer MEDICARE, OTHER, SELFPAY | PROVIDERS: PCP Family Medicine; Visit Provider Nurse Practitioner Family | DX: L82.1 Other seborrheic keratosis (principal); L72.0 Epidermal cyst; L81.4 Other melanin hyperpigmentation; L57.8 Other skin changes due to chronic exposure to nonionizing radiation; Z08 Encounter for follow-up examination after completed treatment for malignant neoplasm; Z85.828 Personal history of other malignant neoplasm of skin; L57.0 Actinic keratosis | CPT/HCPCS: 17000; 99213 ==

== ENCOUNTER → 2025-08-07 15:32 | Outpatient (BNVA) | payer MEDICARE, OTHER, SELFPAY | PROVIDERS: PCP Family Medicine; Visit Provider Internal Medicine Cardiovascular Disease | DX: I48.91 Unspecified atrial fibrillation (principal); Z79.01 Long term (current) use of anticoagulants; I10 Essential (primary) hypertension; I34.0 Nonrheumatic mitral (valve) insufficiency; E78.5 Hyperlipidemia, unspecified; Z87.891 Personal history of nicotine dependence | CPT/HCPCS: 99214 ==